=== PATIENT | male | born 1980 | race Caucasian/White ===

== ENCOUNTER 2023-08-08 13:53 | Outpatient (REF) | payer MEDICAID, SELFPAY ==
[2023-08-08 14:40] LABS: Abs Immature Grans 0.01 10^3/uL (0.0-0.06); Absolute Basophil Count 0.02 10^3/uL (0.0-0.2); Absolute Eosinophil Count 0.08 10^3/uL (0.0-0.7); Absolute Lymphocyte Count 0.83 10^3/uL (1.2-3.4); Absolute Monocyte Count 0.31 10^3/uL (0.1-0.8); Absolute Neutrophil Count 3.91 10^3/uL (1.2-6.7); Basophils % 0.4; Eosinophils % 1.6; HCT 48.5 % (40.0-50.0); HGB 17.1 g/dL (13.5-17.5); Immature Grans % 0.2; Lymphocytes % 16.1; MCH 29.2 pg (27.0-33.0); MCHC 35.3 % (32.0-36.0); MCV 83 fL (80-95); Neutrophils % 75.7; Platelet Count 227 10^3/uL (130-400); RBC 5.85 10^6/uL (4.36-5.78); RDW 11.9 % (11.8-14.1); RDW-SD 35.9 fL; WBC 5.16 10^3/uL (4.4-10.8)
[2023-08-08 15:04] LABS: ALT 53 U/L (16-63); AST 22 U/L (15-37); Albumin 4.1 g/dL (3.4-5.0); Alkaline Phosphatase 106 U/L (46-116); Anion Gap 9.4 mmol/L (3-11); BUN 12 mg/dL (7-18); Bilirubin, Total 0.6 mg/dL (0.2-1.0); CO2 24.6 mmol/L (21.0-32.0); CREATININE 0.9 mg/dL (0.70-1.30); Calcium 9.1 mg/dL (8.5-10.1); Chloride 99 mmol/L (98-107); Estimated GFR 110.04 (mL/min/1.73m2); Glucose 360 mg/dL (74-106); Potassium 4.2 mmol/L (3.5-5.1); Sodium 133 mmol/L (136-145); TSH 2.12 uIU/mL (0.36-3.74); Total Protein 7.6 g/dL (6.4-8.2)
== END 2023-08-08 13:54 | disposition home or self-care (01) ==
LOC: NCHCN 13:53
PROVIDERS: Visit Provider Internal Medicine
DX: R63.4 Abnormal weight loss (principal); R05.8 Other specified cough
CPT/HCPCS: 80053; 84443; 85025

== ENCOUNTER 2023-08-11 15:55 | Outpatient (REF) | payer MEDICAID, SELFPAY ==
[2023-08-11 17:47] LABS: Calculated LDL 122 mg/dL (<100); Cholesterol 192 mg/dL (<200); Glucose 268 mg/dL (74-106); HDL Cholesterol 39 mg/dL (40-60); Triglyceride 159 mg/dL (<150)
[2023-08-11 17:56] LABS: Hemoglobin A1C 11.1 % (<5.7)
== END 2023-08-11 15:56 | disposition home or self-care (01) ==
LOC: NCHCN 15:55
PROVIDERS: Visit Provider Internal Medicine
DX: R73.09 Other abnormal glucose (principal); E78.89 Other lipoprotein metabolism disorders
CPT/HCPCS: 80061; 82947; 83036

== ENCOUNTER 2023-08-29 16:58 | Outpatient (REF) | payer MEDICAID, SELFPAY ==
[2023-08-29 15:33] LABS: Microalb ug/mg Crea 23.1 ug/mg Cr
== END 2023-08-29 16:59 | disposition home or self-care (01) ==
LOC: NCHCN 16:58
PROVIDERS: Visit Provider Internal Medicine
DX: E11.65 Type 2 diabetes mellitus with hyperglycemia (principal); R59.1 Generalized enlarged lymph nodes; R22.32 Localized swelling, mass and lump, left upper limb
CPT/HCPCS: 82043; 82570

== ENCOUNTER → 2023-09-05 03:21 | Outpatient (CLI) | payer MEDICAID, SELFPAY ==
--- NOTE | 2023-09-05 | DI.US_ITS ---
Exam(s) US SOFT TISSUE EXTREMITY EXAM: US SOFT TISSUE EXTREMITY CLINICAL HISTORY: SUBCUTANEOUS NODULE ARM LT, R22.32, FOR 3 MONTHS, PAINLESS. TECHNIQUE: Ultrasound was performed using standard protocol. COMPARISON: No exams were available for comparison FINDINGS: Sonographic assessment utilizing grayscale and color Doppler imaging was performed and targeted to th e area of clinical concern. There is localized edema in the subcutaneous fat corresponding to the areas of the palpable abnormali ties in the forearm. One area measures roughly 2.5 x 0.5 x 3.5 cm. The 2nd more distal palpable abn ormality measures 1.1 x 0.3 x 1.5 cm. There is some hyperemia. There is no drainable collection or solid mass. Findings may be posttraumatic or related to infection.. IMPRESSION: Hypoechoic areas in the subcutaneous fat may be secondary to prior trauma or infection. DATA REPOSITORY:
== END ==
PROVIDERS: PCP Internal Medicine; Visit Provider Internal Medicine
DX: R22.32 Localized swelling, mass and lump, left upper limb (principal)
CPT/HCPCS: 76881

== ENCOUNTER 2023-11-10 10:11 | Outpatient (CLI) | payer MEDICAID, SELFPAY ==
--- OUTSIDE RECORDS SUMMARY | 2023-11-10 10:16 | XMS_ITS | CCD ---
Author Name Unknown Address [address] [place] [address] [phone] Organization Unknown Address [address] [place] [address] [phone] Care Team Providers Care Architecture Instructor Name Role Phone LEO MENSAH Attending Physician [phone] LEONCIO DURON Er Physician [phone] YAN Zamudio Registered Nurse [phone] JING Turner Registered Nurse [phone] GARRET Vázquez Registered Nurse [phone] Vital Signs Vital Sign Value Unit Date/Time Recent/Initial ? BMI (Body Mass Index) 34.44 kg/m^2 06/15/2023 20: 17 Initial VS Weight Measured 240 lbs 06/15/2023 20:17 Ini tial VS Height 70 in 06/15/2023 20:17 Initial VS BSA (Body Surface Area) 2.32 m^2 06/15/2023 2 0:17 Initial VS BP Systolic 156 mmHg 06/15/2023 20:17 Initial VS BP Diastolic 105 mmHg 06/15/2023 20:17 Initia l VS Respiratory Rate 16 bpm 06/15/2023 20:17 In itial VS Heart Rate 87 bpm 06/15/2023 20:17 Initial VS O2 % BldC Oximetry 98 % 06/15/2023 20:17 Initial VS Body Temperature 36.8 degrees 06/15/2023 20:17 In itial VS Allergies Allergy Code Allergy Type Reaction Status No Known Drug Allergies 0 No known drug allergies Active Procedures Unknown or Not Available. History of Immunizations Immunization Code Date Tdap 115 06/15/2023 Problems Unknown or Not Available. Results Unknown or Not Available. Active Medications Medications Administered During Visit Medication Dose Units Frequency Route Date/Time of Last Dose TETANUS/DIPHT/PERTUS SYR:0.5ML(BOOSTRIX) 0.5 ML X1 IM 07/19/20 23 22:05 ONDANSETRON TABLET ORAL DISINTEGRAT: 4MG 4 MG X1 PO 06/15/2023 22:26 Encounters Encounter Diagnosis Diagnosis Code Start Date Laceration of wrist without foreign body [id number] 06/15/2023 Social History Smoking Status Code Start Date End Date Unknown if ever smoked [id number] Patient Decision Aids Unknown or Not Available. Discharge Instructions You were admitted to [facility] on 06/15/2023 19:55 with a principal diagnosis of Laceration without foreign body of left wrist, initial encounter You were discharged from [facility] on 06/15/2023 23:13 Should you have any questions prior to discharge, please contact a member of your healthcare team. If you have left the hospital and have any questions, please contact your primary care physician. Chief Complaint and Reason For Visit Chief Complaint Date of Onset LT WRIST PUNCTURE Function Status Unknown or Not Available. Plan of Care Unknown or Not Available. Referral/Transition of Care Unknown or Not Available.
--- OUTSIDE RECORDS SUMMARY | 2023-11-10 10:16 | XMS_ITS | CCD ---
Author Name Unknown Address [address] [place] [address] [phone] Organization Unknown Address [address] [place] [address] [phone] Care Team Providers Care Plumber Supervisor Name Role Phone KRIS ALFREDO Attending Physician [phone] Vital Signs Unknown or Not Available. Allergies Allergy Code Allergy Type Reaction Status No Known Drug Allergies 0 No known drug allergies Active Procedures Unknown or Not Available. History of Immunizations Immunization Code Date Tdap 115 06/15/2023 Problems Unknown or Not Available. Results Unknown or Not Available. Active Medications Medication Code Dose Units Frequency Route Modificatio n Start Date/Time Keflex 500MG Oral Capsule [id number] 1 CAPSULE THREE TIMES A DAY ORAL 06/15/2023 23:04 Prescription Detail TAKE 1 CAPSULE ORAL THREE TIMES A DAY Medications Administered During Visit Unknown or Not Available. Encounters Encounter Diagnosis Diagnosis Code Start Date Other specified cough R058 08/08/2023 Social History Smoking Status Code Start Date End Date Unknown if ever smoked [id number] Patient Decision Aids Unknown or Not Available. Discharge Instructions You were admitted to [facility] on 08/08/2023 11:02 with a principal diagnosis of Other specified cough You were discharged from [facility] on 08/08/2023 11:02 Should you have any questions prior to discharge, please contact a member of your healthcare team. If you have left the hospital and have any questions, please contact your primary care physician. Chief Complaint and Reason For Visit Unknown or Not Available. Function Status Unknown or Not Available. Plan of Care Unknown or Not Available. Referral/Transition of Care Unknown or Not Available.
[2023-11-10 10:19] LABS: Abs Immature Grans 0.02 10^3/uL (0.0-0.06); Absolute Basophil Count 0.01 10^3/uL (0.0-0.2); Absolute Eosinophil Count 0.07 10^3/uL (0.0-0.7); Absolute Lymphocyte Count 1.44 10^3/uL (1.2-3.4); Absolute Monocyte Count 0.51 10^3/uL (0.1-0.8); Absolute Neutrophil Count 6.62 10^3/uL (1.2-6.7); Basophils % 0.1; Eosinophils % 0.8; HCT 46.7 % (40.0-50.0); Immature Grans % 0.2; Lymphocytes % 16.6; MCH 29.6 pg (27.0-33.0); MCHC 34.3 % (32.0-36.0); MCV 86 fL (80-95); MPV 9.1 fL (8.0-11.0); Monocytes % 5.9; Neutrophils % 76.4; Platelet Count 171 10^3/uL (130-400); RBC 5.41 10^6/uL (4.36-5.78); RDW 12.9 % (11.8-14.1); RDW-SD 40.4 fL; WBC 8.67 10^3/uL (4.4-10.8)
[2023-11-10 11:13] LABS: ALT 43 U/L (16-63); AST 15 U/L (15-37); Albumin 3.8 g/dL (3.4-5.0); Alkaline Phosphatase 60 U/L (46-116); Anion Gap 8.4 mmol/L (3-11); BUN 18 mg/dL (7-18); Bilirubin, Total 0.7 mg/dL (0.2-1.0); CO2 28.6 mmol/L (21.0-32.0); CREATININE 1.1 mg/dL (0.70-1.30); Calcium 9.3 mg/dL (8.5-10.1); Chloride 101 mmol/L (98-107); Estimated GFR 86.49 (mL/min/1.73m2); Glucose 242 mg/dL (74-106); Potassium 3.9 mmol/L (3.5-5.1); Sodium 138 mmol/L (136-145); Total Protein 6.9 g/dL (6.4-8.2)
[2023-11-11 12:43] LABS: Leukemia/Lymphoma by FC (Blood (See below)
== END 2023-11-10 10:12 | disposition home or self-care (01) ==
LOC: LBO 10:11
PROVIDERS: PCP Internal Medicine; Visit Provider Student in an Organized Health Care Education/Training Program
DX: D86.9 Sarcoidosis, unspecified (principal); R59.1 Generalized enlarged lymph nodes
CPT/HCPCS: 36415; 80053; 88185; 85025; 88184; 88189

== ENCOUNTER 2023-11-10 13:03 | Outpatient (REF) | payer MEDICAID, SELFPAY ==
[2023-11-11 11:58] LABS: Calcium Urine 10.6 mg/dL (See Note); Calcium Urine 24 hr 371 mg/24hr (100-300); Timed Urine Volume 3500 mL
== END 2023-11-10 13:04 | disposition home or self-care (01) ==
LOC: LBN 13:03
PROVIDERS: PCP Internal Medicine; Visit Provider Student in an Organized Health Care Education/Training Program
DX: D86.9 Sarcoidosis, unspecified (principal)
CPT/HCPCS: 81050; 82340

== ENCOUNTER 2024-02-15 13:34 | Outpatient (REF) | payer MEDICAID, SELFPAY ==
[2024-02-15 21:44] LABS: Calculated LDL 104 mg/dL (<100); Cholesterol 171 mg/dL (<200); HDL Cholesterol 50 mg/dL (40-60); Triglyceride 87 mg/dL (<150)
[2024-02-15 21:46] LABS: Hemoglobin A1C 6.5 % (<5.7)
== END 2024-02-15 13:35 | disposition home or self-care (01) ==
LOC: NCHCN 13:34
PROVIDERS: PCP Internal Medicine; Visit Provider Internal Medicine
DX: E78.5 Hyperlipidemia, unspecified (principal); E11.9 Type 2 diabetes mellitus without complications
CPT/HCPCS: 80061; 83036

== ENCOUNTER 2024-08-20 18:57 | Outpatient (REF) | payer MEDICAID, SELFPAY ==
[2024-08-20 20:48] LABS: COMMENT (LAB VIEW ONLY) 126.83 mg/dL; Microalb ug/mg Crea 18.4 ug/mg Cr
== END 2024-08-20 18:58 | disposition home or self-care (01) ==
LOC: NCHCN 18:57
PROVIDERS: PCP Internal Medicine; Visit Provider Internal Medicine
DX: E11.9 Type 2 diabetes mellitus without complications (principal)
CPT/HCPCS: 82043; 82570

== ENCOUNTER 2025-02-15 11:26 | Outpatient (REF) | payer MEDICAID, SELFPAY ==
[2025-02-15 14:33] LABS: HCT 46.4 % (40.0-50.0); HGB 16.1 g/dL (13.5-17.5); MCH 29.7 pg (27.0-33.0); MCHC 34.7 % (32.0-36.0); MCV 86 fL (80-95); MPV 9.8 fL (8.0-11.0); Platelet Count 192 10^3/uL (130-400); RBC 5.42 10^6/uL (4.36-5.78); RDW-SD 37.6 fL
[2025-02-15 15:10] LABS: ALT 38 U/L (16-63); AST 22 U/L (15-37); Albumin 4.3 g/dL (3.4-5.0); Alkaline Phosphatase 92 U/L (46-116); Anion Gap 10.5 mmol/L (3-11); BUN 19 mg/dL (7-18); Bilirubin, Total 0.5 mg/dL (0.2-1.0); CO2 24.5 mmol/L (21.0-32.0); CREATININE 0.9 mg/dL (0.70-1.30); Calcium 9.1 mg/dL (8.5-10.1); Calculated LDL 131 mg/dL (<100); Chloride 104 mmol/L (98-107); Cholesterol 209 mg/dL (<200); Estimated GFR 108.68 (mL/min/1.73m2); Glucose 176 mg/dL (74-106); HDL Cholesterol 55 mg/dL (>or=40); Potassium 4.3 mmol/L (3.5-5.1); Sodium 139 mmol/L (136-145); Total Protein 7.5 g/dL (6.4-8.2); Triglyceride 116 mg/dL (<150)
== END 2025-02-15 11:27 | disposition home or self-care (01) ==
LOC: NCHCN 11:26
PROVIDERS: PCP Internal Medicine; Visit Provider Internal Medicine
DX: E11.9 Type 2 diabetes mellitus without complications (principal)
CPT/HCPCS: 80053; 80061; 85027; 83036

== ENCOUNTER 2025-09-26 17:01 | Outpatient (REF) | payer MEDICAID, SELFPAY ==
[2025-09-26 21:07] LABS: Microalb ug/mg Crea 26.0 ug/mg Cr
== END 2025-09-26 17:02 | disposition home or self-care (01) ==
LOC: NCHCN 17:01
PROVIDERS: PCP Internal Medicine; Visit Provider Internal Medicine
DX: E11.9 Type 2 diabetes mellitus without complications (principal)
CPT/HCPCS: 82043; 82570